=== PATIENT | male | born 1950 | race Caucasian/White ===

== ENCOUNTER 2020-04-15 12:55 | Inpatient (IN) ==
[2020-04-15] MEDS ORDERED: NS 0.9% 1000 ml BAG 1,000 ML IV.FLUID IV ONE (13:19)
[2020-04-15] MEDS ORDERED: Piperacillin/Tazobac ADVAN 3.375 GM in NS 0.9% 100 ml BAG 100 ML IVPB ONE (13:19)
[2020-04-15] MEDS ORDERED: Piperacillin/Tazobac ADVAN 3.375 GM in NS 0.9% 100 ml BAG 100 ML IV ONE (13:28)
[2020-04-15] MEDS ORDERED: Piperacillin/Tazobac 3.375 GM BAG ONE (13:29)
[2020-04-15 14:10] LABS: ABS Lymphocytes 0.3 10^3/ul (1.0-4.8); ABS Monocytes 0.2 10^3/ul (0-0.8); Hematocrit 47 % (42-52); Hemoglobin 16.3 g/dL (14.0-18.0); Lymphocyte % 4.6 %; Mean Corpuscular HGB Conc 35 g/dL (31-36); Mean Corpuscular Hemoglobin 33 pg (27-31); Mean Corpuscular Volume 97 fL (80-94); Mean Platelet Volume 7.6 fL (7.4-10.4); Platelet Count 153 10^3/uL (150-450); Red Blood Count 4.91 10^6 /uL (4.18-5.48); Red Cell Distribution Width 13 % (10-15); White Blood Count 7.6 10^3/uL (3.5-10.8)
[2020-04-15 14:26] LABS: INR 1.16 (0.82-1.09); Influenza A Molecular Negative (Negative); Influenza B Molecular Negative (Negative)
[2020-04-15 14:27] LABS: ALT 57 U/L (7-52); AST 34 U/L (13-39); Albumin 4.2 g/dL (3.2-5.2); Albumin/Globulin Ratio 1.4 (1-3); Alkaline Phosphatase 68 U/L (34-104); Anion Gap 6 mmol/L (2-11); BUN/Creatinine Ratio 16.8 (8-20); Blood Urea Nitrogen 19 mg/dL (6-24); C Reactive Protein 103.79 mg/L (<8.01); CO2 Carbon Dioxide 28 mmol/L (22-32); Chloride 101 mmol/L (101-111); EGFR African American 77.6 (>60); EGFR Non-African American 64.2 (>60); Globulin 2.9 g/dL (2-4); Glucose 125 mg/dL (70-100); Potassium 4.3 mmol/L (3.5-5.0); Sodium 135 mmol/L (135-145); Total Protein 7.1 g/dL (6.4-8.9)
[2020-04-15 14:28] LABS: Troponin I 0.02 ng/mL (<0.03)
[2020-04-15 17:44] LABS: Creatine Kinase 45 U/L (10-223)
[2020-04-15 17:49] LABS: Urine Appearance Cloudy; Urine Bilirubin Negative (Negative); Urine Blood 1+ (Negative); Urine Color Yellow; Urine Glucose Negative (Negative); Urine Ketones Negative (Negative); Urine Nitrite Negative (Negative); Urine Protein 1+(30 mg/dL) (Negative); Urine Specific Gravity 1.015 (1.010-1.030); Urine Urobilinogen Negative (Negative)
[2020-04-15 17:52] LABS: Urine Bacteria Absent (Absent); Urine Red Blood Cell Trace(0-2/hpf) (Absent); Urine Squamous Epithelial Cell Present (Absent); Urine White Blood Cell Trace(0-5/hpf) (Absent)
[2020-04-15] MEDS ORDERED: Remdesivir 100 mg Vial 200 MG in NS 0.9% 250 ml 210 ML IV ONE (18:00)
[2020-04-15 18:04] LABS: Ferritin 1006.6 ng/mL (24-336)
[2020-04-15 18:12] LABS: LDH 254 U/L (140-271)
[2020-04-15] MEDS: Enoxaparin 40 MG/0.4 ML SYR SUBCUT SCH (20:18)
[2020-04-16] MEDS ORDERED: NS 0.9% 1000 ml BAG 1,000 ML IV ONE (05:17)
[2020-04-16 06:32] LABS: ABS Monocytes 0.6 10^3/ul (0-0.8); ABS Neutrophils 13.6 10^3/ul (1.5-7.7); Hematocrit 41 % (42-52); Lymphocyte % 6.8 %; Mean Corpuscular HGB Conc 34 g/dL (31-36); Mean Corpuscular Hemoglobin 33 pg (27-31); Mean Corpuscular Volume 97 fL (80-94); Mean Platelet Volume 7.5 fL (7.4-10.4); Platelet Count 154 10^3/uL (150-450); Red Blood Count 4.22 10^6 /uL (4.18-5.48); Red Cell Distribution Width 13 % (10-15); White Blood Count 15.3 10^3/uL (3.5-10.8)
[2020-04-16 06:49] LABS: BUN/Creatinine Ratio 17.4 (8-20); Calcium 8.7 mg/dL (8.6-10.3); EGFR African American 64.9 (>60); EGFR Non-African American 53.6 (>60); Potassium 4.6 mmol/L (3.5-5.0)
[2020-04-16 07:15] LABS: Ferritin 1235.9 ng/mL (24-336)
[2020-04-16] MEDS: Enoxaparin 40 MG/0.4 ML SYR SUBCUT SCH ×2 (07:59→21:00)
[2020-04-16] MEDS: Tiotropium Brom/Olodaterol MDI INH SCH (08:38)
[2020-04-16] MEDS: Albuterol HFA INHALER 8 gm MDI INH PRN (08:38)
[2020-04-16] MEDS ORDERED: Tocilizumab 200 MG/10 ML 10 ml VIAL IVPB ONE (09:22)
[2020-04-16] MEDS ORDERED: TOCILIZUMAB IVPB ONE (10:15)
[2020-04-16] MEDS ORDERED: NS 0.9% IVPB ONE (10:15)
[2020-04-16] MEDS ORDERED: cefTRIAXone 1 gm/50 mL NS BAG 1 GM/50 ML BAG IVPB SCH (15:00)
[2020-04-16] MEDS ORDERED: Vancomycin 1,000 MG in NS 0.9% 250 ml 250 ML IVPB ONE (16:00)
[2020-04-16] MEDS ORDERED: Vancomycin per Pharmacy 1 EA NOTE FOLLOW UP SCH (16:00)
[2020-04-16] MEDS: methylPREDNISolone SOD 40 mg/ml 1 ml VIAL IV SCH (16:00)
[2020-04-16] MEDS: Azithromycin 500 mg/250 ml NS 500 MG/250 ML BAG IVPB SCH (16:01)
[2020-04-16] MEDS: Piperacillin/Tazobac ADVAN 3.375 GM in NS 0.9% 100 ml BAG 100 ML IV SCH (17:31)
[2020-04-16] MEDS ORDERED: Dextrose 50% Syringe 50 ml 25 GM/50 ML SYRINGE IV PUSH PRN (17:40)
[2020-04-16] MEDS: Remdesivir 100 mg Vial 100 MG in NS 0.9% 250 ml 230 ML IV SCH (21:17)
[2020-04-17] MEDS: Piperacillin/Tazobac ADVAN 3.375 GM in NS 0.9% 100 ml BAG 100 ML IV SCH ×3 (00:29→16:51)
[2020-04-17] MEDS: methylPREDNISolone SOD 40 mg/ml 1 ml VIAL IV SCH ×2 (01:15→13:14)
[2020-04-17] MEDS ORDERED: Vancomycin 1000 MG in NS 0.9% 250 ML IVPB SCH (06:00)
[2020-04-17 06:01] LABS: EGFR African American 91.5 (>60); EGFR Non-African American 75.6 (>60)
[2020-04-17] MEDS: Tiotropium Brom/Olodaterol MDI INH SCH (07:37)
[2020-04-17] MEDS: Albuterol HFA INHALER 8 gm MDI INH PRN (07:38)
[2020-04-17 08:25] LABS: Albumin 3.3 g/dL (3.2-5.2); Albumin/Globulin Ratio 1.3 (1-3); C Reactive Protein 99.08 mg/L (<8.01); Calcium 8.4 mg/dL (8.6-10.3); Globulin 2.6 g/dL (2-4); Potassium 4.3 mmol/L (3.5-5.0); Total Bilirubin 0.5 mg/dL (0.2-1.0); Total Protein 5.9 g/dL (6.4-8.9)
[2020-04-17] MEDS: Enoxaparin 40 MG/0.4 ML SYR SUBCUT SCH (08:51)
[2020-04-17 08:52] LABS: BUN/Creatinine Ratio 22.4 (8-20)
[2020-04-17] MEDS ORDERED: KCL 10 MEQ/50 ML IVPREMIX 10 MEQ/50 ML BAG IV ONE (09:14)
[2020-04-17] MEDS ORDERED: Tocilizumab 200 MG/10 ML 10 ml VIAL IVPB SCH (11:00)
[2020-04-17] MEDS: Azithromycin 500 mg/250 ml NS 500 MG/250 ML BAG IVPB SCH (15:35)
[2020-04-17 19:46] LABS: ABS Lymphocytes 0.9 10^3/ul (1.0-4.8); ABS Monocytes 0.4 10^3/ul (0-0.8); ABS Neutrophils 8.6 10^3/ul (1.5-7.7); Hematocrit 34 % (42-52); Hemoglobin 11.6 g/dL (14.0-18.0); Lymphocyte % 9.4 %; Mean Corpuscular HGB Conc 35 g/dL (31-36); Mean Corpuscular Hemoglobin 34 pg (27-31); Mean Corpuscular Volume 97 fL (80-94); Mean Platelet Volume 7.5 fL (7.4-10.4); Platelet Count 153 10^3/uL (150-450); Red Blood Count 3.45 10^6 /uL (4.18-5.48); Red Cell Distribution Width 13 % (10-15)
[2020-04-17] MEDS: Heparin 5000 UNITS/ML 1 mL VIAL SUBCUT SCH (21:09)
[2020-04-17] MEDS: Remdesivir 100 mg Vial 100 MG in NS 0.9% 250 ml 230 ML IV SCH (21:33)
[2020-04-18] MEDS: Piperacillin/Tazobac ADVAN 3.375 GM in NS 0.9% 100 ml BAG 100 ML IV SCH ×4 (00:25→23:34)
[2020-04-18] MEDS: methylPREDNISolone SOD 40 mg/ml 1 ml VIAL IV SCH ×2 (01:14→12:59)
[2020-04-18 04:04] LABS: Hematocrit 44 % (42-52); Hemoglobin 15.2 g/dL (14.0-18.0); Mean Corpuscular HGB Conc 35 g/dL (31-36); Mean Corpuscular Hemoglobin 34 pg (27-31); Mean Corpuscular Volume 96 fL (80-94); Mean Platelet Volume 7.6 fL (7.4-10.4); Platelet Count 213 10^3/uL (150-450); Red Blood Count 4.54 10^6 /uL (4.18-5.48); Red Cell Distribution Width 13 % (10-15)
[2020-04-18 04:12] LABS: Activated Partial Thrombo Time 34.1 seconds (26.0-38.0); INR 1.07 (0.82-1.09)
[2020-04-18 04:21] LABS: Albumin 3.8 g/dL (3.2-5.2); Albumin/Globulin Ratio 1.3 (1-3); BUN/Creatinine Ratio 24.3 (8-20); EGFR African American 86.4 (>60); EGFR Non-African American 71.4 (>60); Globulin 2.9 g/dL (2-4); Potassium 4.2 mmol/L (3.5-5.0); Total Bilirubin 0.6 mg/dL (0.2-1.0); Total Protein 6.7 g/dL (6.4-8.9)
[2020-04-18] MEDS ORDERED: Vancomycin Trough Check NOTE FOLLOW UP ONE (05:30)
[2020-04-18] MEDS: Heparin 5000 UNITS/ML 1 mL VIAL SUBCUT SCH ×2 (08:56→20:14)
[2020-04-18] MEDS: Tiotropium Brom/Olodaterol MDI INH SCH (08:57)
[2020-04-18] MEDS: Azithromycin 500 mg/250 ml NS 500 MG/250 ML BAG IVPB SCH (15:20)
[2020-04-19] MEDS: methylPREDNISolone SOD 40 mg/ml 1 ml VIAL IV SCH ×3 (02:00→17:56)
[2020-04-19] MEDS ORDERED: diPHENhydraMINE 25 mg TAB PO ONE (05:17)
[2020-04-19 05:30] LABS: INR 1.1 (0.82-1.09)
[2020-04-19 05:35] LABS: ALT 116 U/L (7-52); Albumin 3.6 g/dL (3.2-5.2); Albumin/Globulin Ratio 1.3 (1-3); Alkaline Phosphatase 68 U/L (34-104); Blood Urea Nitrogen 30 mg/dL (6-24); CO2 Carbon Dioxide 26 mmol/L (22-32); Calcium 8.6 mg/dL (8.6-10.3); Chloride 104 mmol/L (101-111); EGFR African American 89.4 (>60); EGFR Non-African American 73.9 (>60); Globulin 2.7 g/dL (2-4); Glucose 226 mg/dL (70-100); Sodium 136 mmol/L (135-145); Total Protein 6.3 g/dL (6.4-8.9)
[2020-04-19 05:45] LABS: Anion Gap 6 mmol/L (2-11)
[2020-04-19 06:18] LABS: Potassium Redraw 4.1 mmol/L (3.5-5.0)
[2020-04-19] MEDS: Tiotropium Brom/Olodaterol MDI INH SCH (07:23)
[2020-04-19] MEDS: Piperacillin/Tazobac ADVAN 3.375 GM in NS 0.9% 100 ml BAG 100 ML IV SCH ×3 (08:38→23:12)
[2020-04-19] MEDS: Heparin 5000 UNITS/ML 1 mL VIAL SUBCUT SCH ×2 (08:53→20:37)
[2020-04-19] MEDS ORDERED: Furosemide 40 mg/4 ml IV VIAL IV ONE (09:03)
[2020-04-19] MEDS: Azithromycin 500 mg/250 ml NS 500 MG/250 ML BAG IVPB SCH (14:58)
[2020-04-20] MEDS: methylPREDNISolone SOD 40 mg/ml 1 ml VIAL IV SCH ×3 (01:57→17:55)
[2020-04-20 05:50] LABS: Hematocrit 42 % (42-52); Hemoglobin 14.3 g/dL (14.0-18.0); Mean Corpuscular HGB Conc 35 g/dL (31-36); Mean Corpuscular Hemoglobin 33 pg (27-31); Mean Corpuscular Volume 96 fL (80-94); Mean Platelet Volume 7.3 fL (7.4-10.4); Platelet Count 238 10^3/uL (150-450); Red Blood Count 4.32 10^6 /uL (4.18-5.48); Red Cell Distribution Width 13 % (10-15); White Blood Count 11.2 10^3/uL (3.5-10.8)
[2020-04-20 05:55] LABS: INR 1.05 (0.82-1.09)
[2020-04-20 06:08] LABS: Albumin 3.6 g/dL (3.2-5.2); Calcium 8.7 mg/dL (8.6-10.3); Indirect Bilirubin 0.6 mg/dL (0.3-1.0); Magnesium 2.3 mg/dL (1.9-2.7); Total Bilirubin 0.9 mg/dL (0.2-1.0)
[2020-04-20 06:14] LABS: Albumin/Globulin Ratio 1.4 (1-3); BUN/Creatinine Ratio 30.8 (8-20); EGFR African American 85.4 (>60); EGFR Non-African American 70.6 (>60); Globulin 2.6 g/dL (2-4); Total Protein 6.2 g/dL (6.4-8.9)
[2020-04-20] MEDS: Piperacillin/Tazobac ADVAN 3.375 GM in NS 0.9% 100 ml BAG 100 ML IV SCH ×3 (08:14→23:26)
[2020-04-20] MEDS: Tiotropium Brom/Olodaterol MDI INH SCH (08:55)
[2020-04-20] MEDS: Heparin 5000 UNITS/ML 1 mL VIAL SUBCUT SCH ×2 (08:57→21:02)
[2020-04-20] MEDS: Azithromycin 500 mg/250 ml NS 500 MG/250 ML BAG IVPB SCH (15:25)
[2020-04-20] MEDS: Insulin GLARGINE 100 un/ml 10 ml VIAL SUBCUT SCH (21:06)
[2020-04-21] MEDS: methylPREDNISolone SOD 40 mg/ml 1 ml VIAL IV SCH ×3 (03:06→22:06)
[2020-04-21 05:18] LABS: Hematocrit 40 % (42-52); Mean Corpuscular HGB Conc 35 g/dL (31-36); Mean Corpuscular Hemoglobin 33 pg (27-31); Mean Corpuscular Volume 96 fL (80-94); Mean Platelet Volume 7.4 fL (7.4-10.4); Platelet Count 249 10^3/uL (150-450); Red Blood Count 4.21 10^6 /uL (4.18-5.48); Red Cell Distribution Width 13 % (10-15); White Blood Count 14.9 10^3/uL (3.5-10.8)
[2020-04-21 05:36] LABS: BUN/Creatinine Ratio 30.2 (8-20); Calcium 8.7 mg/dL (8.6-10.3); EGFR African American 83.6 (>60); EGFR Non-African American 69.1 (>60)
[2020-04-21 05:50] LABS: Potassium 4.4 mmol/L (3.5-5.0)
[2020-04-21] MEDS: Heparin 5000 UNITS/ML 1 mL VIAL SUBCUT SCH ×2 (08:50→22:06)
[2020-04-21] MEDS ORDERED: Furosemide 20 mg/2 ml IV VIAL IV ONE (08:52)
[2020-04-21] MEDS: Tiotropium Brom/Olodaterol MDI INH SCH (08:53)
[2020-04-21] MEDS: Piperacillin/Tazobac ADVAN 3.375 GM in NS 0.9% 100 ml BAG 100 ML IV SCH ×2 (09:11→16:24)
[2020-04-21] MEDS: Insulin GLARGINE 100 un/ml 10 ml VIAL SUBCUT SCH (23:00)
[2020-04-22] MEDS: Piperacillin/Tazobac ADVAN 3.375 GM in NS 0.9% 100 ml BAG 100 ML IV SCH ×3 (00:27→17:26)
[2020-04-22] MEDS: Tiotropium Brom/Olodaterol MDI INH SCH (08:12)
[2020-04-22] MEDS: methylPREDNISolone SOD 40 mg/ml 1 ml VIAL IV SCH (08:36)
[2020-04-22] MEDS: Heparin 5000 UNITS/ML 1 mL VIAL SUBCUT SCH ×2 (08:37→21:40)
[2020-04-22 10:36] LABS: Hematocrit 41 % (42-52); Hemoglobin 14.3 g/dL (14.0-18.0); Mean Corpuscular HGB Conc 35 g/dL (31-36); Mean Corpuscular Hemoglobin 33 pg (27-31); Mean Corpuscular Volume 96 fL (80-94); Mean Platelet Volume 7.5 fL (7.4-10.4); Platelet Count 273 10^3/uL (150-450); Red Blood Count 4.29 10^6 /uL (4.18-5.48); Red Cell Distribution Width 13 % (10-15)
[2020-04-22 11:00] LABS: BUN/Creatinine Ratio 34.7 (8-20); Calcium 8.8 mg/dL (8.6-10.3); EGFR African American 88.4 (>60)
[2020-04-22] MEDS: Insulin GLARGINE 100 un/ml 10 ml VIAL SUBCUT SCH (21:41)
[2020-04-23 06:35] LABS: Hematocrit 43 % (42-52); Hemoglobin 14.5 g/dL (14.0-18.0); Mean Corpuscular HGB Conc 34 g/dL (31-36); Mean Corpuscular Hemoglobin 33 pg (27-31); Mean Corpuscular Volume 97 fL (80-94); Mean Platelet Volume 7.2 fL (7.4-10.4); Platelet Count 271 10^3/uL (150-450); Red Blood Count 4.42 10^6 /uL (4.18-5.48); Red Cell Distribution Width 13 % (10-15)
[2020-04-23 06:52] LABS: BUN/Creatinine Ratio 36.4 (8-20); Calcium 8.9 mg/dL (8.6-10.3); EGFR African American 90.4 (>60); EGFR Non-African American 74.7 (>60); Potassium 3.9 mmol/L (3.5-5.0)
[2020-04-23] MEDS: Tiotropium Brom/Olodaterol MDI INH SCH (07:59)
[2020-04-23 08:19] LABS: ABS Monocytes 1.2 10^3/ul (0-0.8); ABS Neutrophils 11.8 10^3/ul (1.5-7.7); Eosinophil % 0.2 %; Lymphocyte % 13.2 %
[2020-04-23] MEDS: Heparin 5000 UNITS/ML 1 mL VIAL SUBCUT SCH ×2 (08:35→20:45)
[2020-04-23] MEDS: Insulin GLARGINE 100 un/ml 10 ml VIAL SUBCUT SCH (20:46)
[2020-04-24 06:17] LABS: Hematocrit 43 % (42-52); Hemoglobin 14.6 g/dL (14.0-18.0); Mean Corpuscular HGB Conc 34 g/dL (31-36); Mean Corpuscular Hemoglobin 33 pg (27-31); Mean Corpuscular Volume 97 fL (80-94); Mean Platelet Volume 7.3 fL (7.4-10.4); Platelet Count 225 10^3/uL (150-450); Red Cell Distribution Width 13 % (10-15); White Blood Count 10.7 10^3/uL (3.5-10.8)
[2020-04-24 06:33] LABS: BUN/Creatinine Ratio 36.5 (8-20); Calcium 8.7 mg/dL (8.6-10.3); EGFR African American 107.8 (>60); EGFR Non-African American 89.1 (>60); Potassium 3.8 mmol/L (3.5-5.0)
[2020-04-24] MEDS: Tiotropium Brom/Olodaterol MDI INH SCH (08:19)
[2020-04-24] MEDS: Heparin 5000 UNITS/ML 1 mL VIAL SUBCUT SCH (11:22)
[2020-04-24 12:55] VITALS: BP 149/94
== END 2020-04-24 15:45 | disposition home or self-care (01) | DRG 133 ==
LOC: ED 12:55 → MED 17:03 → ICU 04-16 13:05 → MED 04-21 21:15
PROVIDERS: ADMIT Internal Medicine; ATTEND Internal Medicine